=== PATIENT | male | born 1960 | race Caucasian/White ===

== ENCOUNTER 2019-01-17 15:18 | Outpatient (CLI) | payer OTHER ==
[2019-01-17 16:11] LABS: CREATININE 1.07 mg/dL (0.7-1.3)
[2019-01-17] MEDS ORDERED: PANT20TA3 PO (17:22)
[2019-01-17] MEDS ORDERED: TERA10CA3 PO (17:26)
[2019-01-17] MEDS ORDERED: ROSU40TA PO (17:26)
[2019-01-17] MEDS ORDERED: FENTANYL PF 250 MCG/5ML ONE (19:02)
[2019-01-17] MEDS ORDERED: MIDAZOLAM 1 MG/ML, 2ML ONE (19:02)
[2019-01-17] MEDS ORDERED: PROPOFOL 10 MG/ML, 20ML ONE (19:35)
[2019-01-17] MEDS ORDERED: SUCCINYLCHOLINE 20 MG/ML, 10ML ONE (19:35)
[2019-01-17] MEDS ORDERED: ONDANSETRON 2MG/ML, 2ML ONE (19:35)
[2019-01-17] MEDS ORDERED: ROCURONIUM 10MG/ML,5ML ONE (19:35)
[2019-01-17] MEDS ORDERED: DEXAMETHASONE 4 MG/ML, 1ML ONE (19:35)
[2019-01-17] MEDS ORDERED: GLYCOPYRROLATE 0.2MG/1ML, 5ML ONE (19:35)
[2019-01-17] MEDS ORDERED: CEFAZOLIN 1,000 MG ONE (19:35)
[2019-01-17] MEDS ORDERED: NEOSTIGMINE 1 MG/ML, 10ML ONE (19:35)
[2019-01-17] MEDS ORDERED: HYDR-3240 PO (21:25)
[2019-01-17] MEDS ORDERED: ONDA4TAB7 PO (21:25)
== END 2019-01-17 23:59 | disposition home or self-care (01) ==
LOC: RAD 15:18
PROVIDERS: ATTEND Family Medicine
DX: K35.80 Unspecified acute appendicitis (principal)
CPT/HCPCS: 36415; 74177; 82565; J0690; J1100; J2250; J2405; J2704; J2710; J3010; J0330